=== PATIENT | female | born 1955 | race Caucasian/White ===

== ENCOUNTER 2019-07-27 03:24 | Inpatient (IN) ==
--- NOTE | 2019-07-20 16:54 | EKG Report ---
Test Performed on : 07/20/2019 4:48:48 PM Test Reason : PAT Blood Pressure : / mmHG Vent. Rate : 093 BPM Atrial Rate : 093 BPM P-R Int : 166 ms QRS Dur : 070 ms QT Int : 346 ms P-R-T Axes : 066 075 073 degrees QTc Int : 430 ms Normal sinus rhythm. Nonspecific T wave abnormality Abnormal ECG No previous ECGs available Unconfirmed Result
[2019-07-20 17:03] LABS: URINE SOURCE CLEAN CATCH
[2019-07-20 17:08] LABS: BASO# 0.02 X1000 (0.0-0.2); BASO% 0.2 % (0.0-0.8); BILIRUBIN URINE NEGATIVE (NEGATIVE); BLOOD URINE NEGATIVE (NEGATIVE); COLOR YELLOW; EOS# 0.31 X1000 (0.0-0.7); EOS% 3.3 % (0.0-10.0); GLUCOSE URINE NEGATIVE (NEGATIVE); HEMATOCRIT 43.5 % (37.0-47.0); HEMOGLOBIN 14.2 g/dL (12.0-16.0); KETONE URINE NEGATIVE (NEGATIVE); LEUKOCYTES URINE LARGE (NEGATIVE); LYMPH# 1.91 X1000 (1.2-3.4); LYMPH% 20.1 % (20.5-51.1); MCH 30.7 PG (27-31); MCHC 32.6 g/dL (33-37); MONO# 0.46 X1000 (0.11-0.59); MONO% 4.8 % (1.7-9.3); NEUT# 6.81 X1000 (1.4-6.5); NEUT% 71.6 % (42.2-75.2); NITRITE URINE NEGATIVE (NEGATIVE); PLT 289 X1000 (130-400); PROTEIN URINE NEGATIVE (NEGATIVE); RBC 4.63 XMIL (4.2-5.4); RDW 13.4 % (11.5-14.5); SP GRAVITY URINE 1.009; TURBIDITY URINE CLEAR (CLEAR); UR EPITHELIAL CELLS <10 /HPF (<10); URINE BACTERIA NEGATIVE /HPF; URINE RBC <10 /HPF (<10); URINE WBC 20-40 /HPF (<10); UROBILINOGEN URINE NORMAL (NORMAL); WBC 9.51 X1000 (4.8-10.8)
[2019-07-20 17:15] LABS: HEMOGLOBIN A1C 5.5 % (4.8-6.0)
[2019-07-20 17:19] LABS: AGAP 14; BUN 12 mg/dL (8-22); CALCIUM 9.4 mg/dL (8.8-10.2); CHLORIDE 101 mmol/L (98-107); COSMO 280; CREATININE 0.7 mg/dL (0.5-0.9); ESTIMATED GFR > 60; GLUCOSE 84 mg/dL (70-104); POTASSIUM 3.6 mmol/L (3.5-5.1); PTT 28.2 Seconds (22.3-41.8); SODIUM 141 mmol/L (136-145); TCO2 26 mmol/L (25-35)
[2019-07-20 17:31] LABS: INR 0.93; PROTIME 12.6 Seconds (11.0-16.0)
[2019-07-27] MEDS ORDERED: COLACE ONE (05:55)
[2019-07-27] MEDS ORDERED: LYRICA ONE (05:55)
[2019-07-27] MEDS ORDERED: REGLAN ONE (05:55)
[2019-07-27] MEDS ORDERED: PEPCID ONE (05:55)
[2019-07-27] MEDS ORDERED: KEFZOL 1 GM/D5W 2 GM/100 ML IVPB ONE (05:56)
[2019-07-27] MEDS ORDERED: LR 1,000 ML ONE (05:56)
[2019-07-27] MEDS ORDERED: CELEBREX ONE (05:56)
[2019-07-27] MEDS ORDERED: FENTANYL ONE (06:37)
[2019-07-27] MEDS ORDERED: DECADRON ONE (06:37)
[2019-07-27] MEDS ORDERED: ZOFRAN ONE (06:37)
[2019-07-27] MEDS ORDERED: XYLOCAINE-MPF 2% ONE (06:37)
[2019-07-27] MEDS ORDERED: ROBINUL ONE (06:37)
[2019-07-27] MEDS ORDERED: DIPRIVAN 1% ONE (06:37)
[2019-07-27] MEDS ORDERED: OFIRMEV 1000 MG/ISOTONIC SOLN 1,000 MG/100 ML BOTTLE ONE (06:38)
[2019-07-27] MEDS ORDERED: TORADOL ONE (06:39)
[2019-07-27] MEDS ORDERED: SODIUM CHLORIDE 0.9% ONE (06:39)
[2019-07-27] MEDS ORDERED: MARCAINE 0.25% PF ONE (06:39)
[2019-07-27] MEDS ORDERED: EXPAREL 1.3% ONE (06:39)
[2019-07-27] MEDS ORDERED: DURAMORPH ONE (06:39)
[2019-07-27] MEDS ORDERED: CYKLOKAPRON 1,000 MG/NS 1,000 MG/100 ML IVPB ONE (06:39)
[2019-07-27] MEDS ORDERED: VERSED ONE (06:48)
[2019-07-27] MEDS ORDERED: VANCOMYCIN ONE (07:10)
[2019-07-27] MEDS ORDERED: NEO-SYNEPHRINE ONE (07:34)
[2019-07-27] MEDS ORDERED: SODIUM CHLORIDE 0.9% 10 ML ONE ×2 (07:34→07:35)
[2019-07-27 07:54] LABS: URINE SOURCE CATH
[2019-07-27 07:56] LABS: BILIRUBIN URINE NEGATIVE (NEGATIVE); BLOOD URINE NEGATIVE (NEGATIVE); COLOR YELLOW; GLUCOSE URINE NEGATIVE (NEGATIVE); KETONE URINE NEGATIVE (NEGATIVE); LEUKOCYTES URINE NEGATIVE (NEGATIVE); NITRITE URINE NEGATIVE (NEGATIVE); PH URINE 5.5; PROTEIN URINE NEGATIVE (NEGATIVE); SP GRAVITY URINE 1.016; TURBIDITY URINE CLEAR (CLEAR); UR EPITHELIAL CELLS <10 /HPF (<10); URINE BACTERIA NEGATIVE /HPF; URINE RBC <10 /HPF (<10); URINE WBC <10 /HPF (<10); UROBILINOGEN URINE NORMAL (NORMAL)
[2019-07-27] MEDS ORDERED: LTA KIT ONE (07:58)
[2019-07-27] MEDS: DILAUDID ONE ×5 (09:19→09:46)
[2019-07-27] MEDS ORDERED: NS 1,000 ML ONE (09:20)
[2019-07-27] MEDS ORDERED: OXY IR ONE (09:52)
--- NOTE | 2019-07-27 10:02 | Diag Imaging Result Doc PS360 ---
SHOULDER 1 VIEW LEFT - 07/27/2019 INDICATION: left TSA TECHNIQUE: COMPARISON: None FINDINGS: There has been left total shoulder arthroplasty. Alignment is anatomic. No hardware fracture or loosening. IMPRESSION: No complication. Electronically signed by Felipe Escalona 07/27/2019 10:00 AM
[2019-07-27] MEDS ORDERED: MILK OF MAGNESIA PO PRN (10:45)
[2019-07-27] MEDS ORDERED: OXY IR PO PRN (10:45)
[2019-07-27] MEDS ORDERED: ZOFRAN PO PRN (10:45)
[2019-07-27] MEDS: DILAUDID IV PRN ×2 (12:24→19:53)
[2019-07-27] MEDS: NS 1,000 ML IV SCH ×2 (12:25→22:51)
[2019-07-27] MEDS ORDERED: CYKLOKAPRON 1,000 MG in NS 100 ML IV ONE (13:30)
--- NOTE | 2019-07-27 14:39 | OPERATIVE NOTE ---
PROCEDURE DATE: 07/27/2019 PREOPERATIVE DIAGNOSIS: Nonunion left proximal humerus. POSTOPERATIVE DIAGNOSIS: Nonunion left proximal humerus. PROCEDURE: Left reverse total shoulder arthroplasty with DePuy Delta Xtend size 8 cemented stem, a 38 +6 humeral cup, a 38 +6 lateralize eccentric glenosphere, and a standard metaglene. SURGEON: Campbell Camara MD. HOT HEAD MACHINE OPERATOR: TOMER Copeland who was necessary for proper positioning, retraction and manipulation of the extremity during the case. SECOND PAPER REWINDER: Dex Layton RN. ANESTHESIA: General. IV FLUIDS: 1500 mL lactated Ringer. ESTIMATED BLOOD LOSS: 200 mL. COMPLICATIONS: None. INDICATION: The patient is a pleasant, 63-year-old female who is status post fall several months ago sustaining a left proximal humeral fracture. Now she has developed a nonunion. She was seen in the office and recommendation to proceed with left reverse total shoulder arthroplasty was offered. Risks and benefits of surgery were explained, including the risks of anesthesia, , bleeding, infection, failure to relieve pain, postoperative stiffness, nerve injury, blood clots, and other imponderables. All questions were answered. Patient and family wished to proceed with surgery. DETAILS OF OPERATION: Patient was taken to the operating room and placed supine on the operating table. Once adequate anesthesia was obtained, she was placed in the semi-Lan beach-chair position. The left shoulder was subsequently prepped and draped in usual sterile fashion. A standard deltopectoral incision was made with a skin knife. Medial and lateral skin envelopes were developed. Standard deltopectoral incision was made. Hemostasis was obtained using electrocautery. The deltopectoral interval was then developed. The retractors were then placed. The fracture site was identified. The deep tissue was bursal type tissue which was resected. The humeral head was identified and it was removed with sharp resection of the posterior aspect of the rotator cuff along with the greater tuberosity. Lesser tuberosity was excised as well. After this had been performed, attention then turned to the glenoid. Circumferential dissection with a deep knife. A guide was then place in position and guide pin was placed. Reaming was then conducted. Central hole was then dilated. The wound was copiously irrigated with antibiotic pulsatile lavage. The standard metaglene was then placed. Two locking screws and 1 nonlocking screw was placed and it appeared to have good fixation. The wound was copiously irrigated once again. A size 38 +6 lateralized eccentric glenosphere was then placed with eccentricity placed inferiorly. After this had been performed, attention then turned to the humerus. Sequential reaming was conducted in preparation for size 8 cemented stem. The trial stem was placed to determine the correct height. After this had been determined, vancomycin was mixed with cement on the back table. Copious irrigation was then performed with antibiotic pulsatile lavage of the intramedullary canal. The cement was then placed in position. The size 8 Delta Xtend stem was then placed in approximately 15 to 20 degrees of retroversion. After cement had cured, trial cup size 38 +6 appeared to correct size. The trial cup was removed. The wound was copiously irrigated once again. A 38 +6 humeral cup was impacted. Shoulder was reduced, carried through range of motion, and had excellent stability and range of motion. Exparel was placed in the deep soft tissue, as well as subcutaneous tissue. The wound was copiously irrigated once again with antibiotic pulsatile lavage. Then 2-0 Vicryl was used to repair the subcutaneous tissue, followed by running 2-0 Prolene. Benzoin and Steri-Strips were applied. Adaptic, sterile 4 x 4's, ABD pad, and tape was applied to the left shoulder, followed by a shoulder immobilizer. All counts were correct. The patient tolerated the procedure well, was transferred to the recovery room in stable condition. cc: Campbell Camara MD
[2019-07-27] MEDS: KEFZOL 2 GM/D5W 2 GM/50 ML IVPB IV SCH ×2 (15:27→22:51)
[2019-07-27] MEDS: TYLENOL PO SCH ×2 (15:28→19:54)
[2019-07-27] MEDS: OXY IR PO PRN ×2 (17:20→21:24)
[2019-07-27] MEDS ORDERED: FLEXERIL PO PRN (18:57)
[2019-07-27] MEDS: NEURONTIN PO SCH (19:54)
[2019-07-27] MEDS: REQUIP PO SCH (19:54)
[2019-07-27] MEDS: PERIDEX MT SCH (19:54)
[2019-07-27] MEDS: LIPITOR PO SCH (19:55)
[2019-07-27] MEDS ORDERED: AMBIEN PO SCH (21:00)
[2019-07-28] MEDS: DILAUDID IV PRN ×2 (00:04→09:18)
[2019-07-28] MEDS: LIPITOR PO SCH (01:04)
[2019-07-28] MEDS: PERIDEX MT SCH ×4 (01:05→11:37)
[2019-07-28] MEDS: NEURONTIN PO SCH ×2 (01:05→09:19)
[2019-07-28] MEDS: REQUIP PO SCH (01:06)
[2019-07-28] MEDS: TYLENOL PO SCH ×2 (02:04→07:57)
[2019-07-28] MEDS: OXY IR PO PRN ×3 (02:04→11:35)
[2019-07-28 06:47] LABS: HEMATOCRIT 33.2 % (37.0-47.0); HEMOGLOBIN 10.5 g/dL (12.0-16.0)
[2019-07-28 06:56] LABS: AGAP 13; BUN 16 mg/dL (8-22); CALCIUM 8.2 mg/dL (8.8-10.2); CHLORIDE 101 mmol/L (98-107); COSMO 278; CREATININE 0.9 mg/dL (0.5-0.9); ESTIMATED GFR > 60; GLUCOSE 120 mg/dL (70-104); POTASSIUM 4.3 mmol/L (3.5-5.1); SODIUM 138 mmol/L (136-145); TCO2 24 mmol/L (25-35)
[2019-07-28 07:37] VITALS: BP 120/68
[2019-07-28] MEDS: NS 1,000 ML IV SCH (07:57)
[2019-07-28] MEDS ORDERED: NORVASC PO SCH (09:00)
[2019-07-28] MEDS ORDERED: EFFEXOR XR PO SCH (09:00)
--- NOTE | 2019-07-28 12:16 | ORTHOPAEDICS PROGRESS NOTE ---
DATE: 07/28/2019 SUBJECTIVE: The patient is a pleasant 63-year-old female who is 1 day status post left reverse total shoulder arthroplasty for a nonunion left proximal humerus. She is currently resting comfortably this morning. OBJECTIVE: On physical exam, the patient's left upper extremity, her dressing is intact. She appears to be able to flex all her fingers. Good sampler tester strength. Compartments were soft. Her labs are pending. IMPRESSION: Postoperative day #1 status post left reverse shoulder arthroplasty. PLAN: At this point, we will plan on discharging home later this morning. We will arrange for outpatient physical therapy. She is scheduled to proceed with this tomorrow. We will have her follow up in the office on 08/09/2019. cc: Campbell Camara MD
== END 2019-07-28 11:49 | disposition home or self-care (01) | DRG 483 ==
LOC: SURHOLD 03:24 → 4N 08:04
PROVIDERS: ADMIT Orthopaedic Surgery Adult Reconstructive Orthopaedic Surgery; ATTEND Orthopaedic Surgery Adult Reconstructive Orthopaedic Surgery